=== PATIENT | female | born 1955 | race Caucasian/White ===

== ENCOUNTER 2022-12-21 18:31 | Emergency (ER) | payer MEDICARE ==
[~2022-12-21 18:31] MED LIST: ATOR20TA49 PO; CLON0.5T4 PO; DABI150C5 PO; HYDR-34 PO; INSU100I10 SQ; METF500T3 PO; PRAM1TAB2 PO; SERT50TA2 PO; SULF1TAB38 PO; UROCIT K PR
--- NOTE | 2022-12-21 18:50 | ED General ---
General Chief Complaint: Trauma-Non Activation Stated Complaint: FALL/SHOULDER PAIN Source of Information: Patient Exam Limitations: No Limitations History of Present Illness Date Seen by Provider: Dec 21, 2022 Time Seen by Provider: 18:50 Initial Comments Patient is a 67-year-old female who presents to the emergency department with a chief complaint of right shoulder pain. She states she was in her garden attempting to read, bent forward to pull some roots from a plant and toppled forward onto her right shoulder. She complained of immediate pain. No numbness tingling or weakness to the wrist or hand/fingers. She has not taken anything for pain. She states she did not hit her head or have a loss of consciousness. 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 Extensive cardiac and renal history. She did sustain abrasions to her bilateral anterior lower legs. She believes her last tetanus was greater than 5 years ago. She is holding the right upper extremity in internal rotation and adduction. Very limited range of motion due to pain. No abrasions or ecchymosis noted on the skin of the right upper extremity. Timing/Duration: 1 Hour Severity: Moderate Modifying Factors: improves with Immobilization; worse with Movement Associated Systoms: Denies Symptoms Allergies and Home Medications Allergies Coded Allergies: No Known Drug Allergies (Unverified , 04/24/19) Patient Home Medication List Home Medication List Reviewed: Yes Atorvastatin Calcium (Lipitor) 20 Mg Tablet, 20 MG PO DAILY, (Reported) Entered as Reported by: PARAG INGRAM on 04/24/191758 Clonazepam (Clonazepam) 0.5 Mg Tablet, 0.5 MG PO HS, (Reported) Entered as Reported by: PARAG INGRAM on 04/24/191758 Dabigatran Etexilate Mesylate (Pradaxa) 150 Mg Capsule, 150 MG PO BID, (Reported) Entered as Reported by: PARAG INGRAM on 04/24/191758 Hydrocodone Bit/Acetaminophen (HYDROcodone/APAP 7.5/325 TAB) 1 Each Tablet, 1-2 TAB PO Q4H Prescribed by: MARK MOODY on 04/24/19 151 Hydrocodone/Acetaminophen (Hydrocodone-Acetamin 7.5-325) 7.5 Mg-325 Mg Tablet, 1 EACH PO Q6H PRN for PAIN-BREAKTHROUGH Prescribed by: DORIS MAN on 12/21/222004 Insulin Glargine,Hum.rec.anlog (Lantus Solostar) 100 Unit/1 Ml Insuln.pen, 80 UNIT SQ BID, (Reported) Entered as Reported by: PARAG INGRAM on 04/24/191758 Metformin HCl (Glucophage Xr) 500 Mg Tab.er.24h, 1,000 MG PO BID, (Reported) Entered as Reported by: PARAG INGRAM on 04/24/191758 Pramipexole Di-HCl (Mirapex) 1 Mg Tablet, 1 MG PO HS, (Reported) Entered as Reported by: PARAG INGRAM on 04/24/191758 Sertraline HCl (Zoloft) 50 Mg Tablet, 50 MG PO DAILY, (Reported) Entered as Reported by: PARAG INGRAM on 04/24/191758 Sulfamethoxazole/Trimethoprim (Bactrim Ds Tablet) 1 Each Tablet, 1 EACH PO BID Prescribed by: MARK MOODY on 04/24/191511 [Urocit K] Unknown Strength , Unknown Dose [place] BID, (Reported) Entered as Reported by: PARAG INGRAM on 04/24/191758 Review of Systems Review of Systems Constitutional: see HPI EENTM: no symptoms reported Respiratory: no symptoms reported Cardiovascular: no symptoms reported Gastrointestinal: no symptoms reported Genitourinary: no symptoms reported Musculoskeletal: joint pain (right shoulder) Skin: other (abrasions) Past Evukrut-Guandk-Kvemag Hx Patient Social History Tobacco Use?: No Substance use?: No Alcohol Use?: No Seasonal Allergies Seasonal Allergies: No Past Medical History Surgeries: Yes (15-20 FOOT SURGERIES,TOE AMPUTATIONS,KIDNEY STONES) Amputation, Gallbladder, Hysterectomy, Orthopedic, Renal Respiratory: Yes Pulmonary Embolism Currently Using CPAP: No Cardiac: No Neurological: Yes Neuropathy Genitourinary: Yes Kidney Stones Gastrointestinal: No Musculoskeletal: Yes (MULTIPLE FOOT SURGERIES W AMPUTATION RIGHT GREAT AND 2ND TOES,OSTEOMYLITIS) Endocrine: Yes Diabetes, Insulin dep HEENT: No Cancer: No Psychosocial: No Integumentary: Yes Recent Skin Changes Blood Disorders: No Physical Exam Vital Signs Vital Signs - First Documented 12/21/22 18:40 Temp 36.5 Pulse 76 Resp 18 B/P (MAP) 113/61 (78) Pulse Ox 95 O2 Delivery Room Air Capillary Refill : Height, Weight, BMI Height: '" Weight: lbs. oz. kg; 37.03 BMI Method: General Appearance: WD/WN, Chronically ill Eyes: Bilateral Eye Normal Inspection HEENT: PERRL/EOMI Neck: Normal Inspection Respiratory: Chest Non Tender, Lungs Clear, Normal Breath Sounds, No Accessory Muscle Use, No Respiratory Distress, Other (no clavicular or chest wall tenderness) Cardiovascular: Regular Rate, Rhythm, Normal Peripheral Pulses, Other (2-3+ pitting edema bilateral LE) Extremity: Normal Inspection, Other (RUE - distal NVI - normal ROM right hand, fingers, wrist and elbow. Limited ROM to the right shoulder due to pain - held in ADDUCTION and internal rotation.) Neurologic/Psychiatric: Alert, Oriented x3, No Motor/Sensory Deficits, Normal Mood/Affect, activity aide II-XII Norm as Tested Skin: Normal Color, Warm/Dry, Other (superficial abrasions to the bilateral LE) Progress/Results/Core Measures Suspected Sepsis SIRS Temperature: Pulse: Respiratory Rate: Blood Pressure / Mean: Results/Orders My Orders Orders - DORIS MAN MD Shoulder, Right, 3 Views (12/21/22 18:59) Humerus, Right, 2 Views (12/21/22 18:59) Hydrocodone/Apap 7.5/325 Tab (Hydrocodon (12/21/22 19:00) Dipht/Pertuss(Acell)/Tet Adult (Dipht/Pe (12/21/22 20:15) Medications Given in ED Current Medications Medications Dose Ordered Sig/Eloina Route Start Time Stop Time Status Last Admin Dose Admin Acetaminophen/ Hydrocodone Bitart 1 ea ONCE ONCE PO 12/21/22 19:00 12/21/22 19:01 DC 12/21/22 19:07 1 EA Vital Signs/I&O 12/21/22 18:40 Temp 36.5 Pulse 76 Resp 18 B/P (MAP) 113/61 (78) Pulse Ox 95 O2 Delivery Room Air Capillary Refill : Progress Note : Time: 20:09 Progress Note Patient seen and examined by me. Evaluation today includes physical exam, right humerus x-ray, right shoulder x-ray. Pertinent physical exam findings well- developed well-nourished female in mild distress due to right shoulder pain. Currently holding the right shoulder in adduction and internal rotation. She is neurovascularly intact to the right upper extremity. She has some obvious deformity at the area of the distal right clavicle. No open wounds. Limited range of motion due to pain. Superficial abrasions to the bilateral lower extremities. Heart is regular, lungs are clear. She has 2-3+ pitting edema of the bilateral lower extremities. No focal neurodeficits. Differential diagnosis based on history and physical exam, right shoulder dislocation, right humeral head fracture, clavicular fracture Imaging independently reviewed and interpreted by me. She definitely has significant AC separation of the right shoulder joint. Radiologist has read the films and does not identify any acute fractures. There is suspicion for traumatic hemarthrosis. He also mentions "high-grade" AC separation. Patient is placed in a shoulder immobilizer. SHe was given one tablet of hydrocodone 7.5mg here in the ED for pain control. She is counseled on ice, immobilization. Also recommended starting gentle ROM in a couple of days. She is given a prescription for hydrocodone 7.5 mg tablets. She is referred to Dr. Brody Burdick at [facility] as well as given contact information for Dr. Burdick at [facility]. REturn precautions provided in both verbal and written format. All questions are sought and answered. Tetanus was also updated. Diagnostic Imaging Comments [facility] [place] NAME: NETO العراقي [facility] REC#: [id number] PT STATUS: REG ER : 1955 PHYSICIAN: DORIS MAN MD ADMIT DATE: 12/21/22/ER Signed Date of Exam:12/21/22 HUMERUS, RIGHT, 2 VIEWS INDICATION: Fall with right humeral injury AP and lateral views of right humerus are obtained. No acute fracture or dislocation is identified at the level of the upper arm, however, acromioclavicular separation is present. There is no lytic or sclerotic lesion. IMPRESSION: No acute osseous abnormality in the upper arm, however, there is acromioclavicular separation at the shoulder girdle. Dictated by: Dictated on workstation # [id number] Dict: 12/21/221929 Trans: 12/21/221955 LANA [id number] Interpreted by: LUIS FONG MD Electronically signed by: LUIS FONG MD 12/21/221955 Comments [facility] [place] [place] NAME: NETO العراقي [facility] REC#: [id number] PT STATUS: REG ER : 1955 PHYSICIAN: DORIS MAN MD ADMIT DATE: 12/21/22/ER Signed Date of Exam:12/21/22 SHOULDER, RIGHT, 3 VIEWS INDICATION: Fall with right shoulder injury AP, oblique and transscapular views of the right shoulder are obtained. There is inferior subluxation of the humeral head which may be due to hemarthrosis in the shoulder. There is disruption of the acromioclavicular joint with approximately 2 cm elevation of distal clavicle with respect to the acromion. No definite fracture is seen. IMPRESSION: High-grade acromioclavicular separation with probable pseudosubluxation of the humeral head due to hemarthrosis. No definite acute fracture seen. Dictated by: Dictated on workstation # [id number] Dict: 12/21/221928 Trans: 12/21/221955 LANA [id number] Interpreted by: LUIS FONG MD Electronically signed by: LUIS FONG MD 12/21/221955 Departure Impression Primary Impression: AC separation Qualified Codes: S43.101A - Unspecified dislocation of right acromioclavicular joint, initial encounter Additional Impressions: traumatic hemarthrosis of right shoulder joint Abrasion Disposition: 01 HOME, SELF-CARE Condition: Stable Departure-Patient Inst. Decision time for Depature: 19:56 Referrals: NO,LOCAL PHYSICIAN (PCP/Family) Primary Care Physician Patient Instructions: shoulder Add. Discharge Instructions: Use an ice pack 20 minutes at a time every 1-2 hours for the next several days. Keep the shoulder IMMOBILE in the sling for a couple of days - then you should start doing some very gentle range of motion of the shoulder (with no weight in your hand). "Pendulum swings" of the arm. Small circles at the shoulder joint as well. Take your pain medications - Hydrocodone 7.5mg tablets, with an extra 500mg tylenol, every 6 hours for pain. Call the Ortho doctor of your choice tomorrow for a follow up appointment, this week if possible. Dr Alfred Burdick at [address] in [place] or Dr Burdick. [address] [place] [address], [place] [phone] I have also sent your chart and records to Dr Brody Burdick here at [address]. His contact information is attached. Return to the Emergency Department for any new, concerning or emergent complaints. Scripts Hydrocodone/Acetaminophen (Hydrocodone-Acetamin 7.5-325) 7.5 Mg-325 Mg Tablet 1 EACH PO Q6H PRN for PAIN-BREAKTHROUGH, #15 TAB Prov: DORIS MAN MD 12/21/22 Copy Copies To 1: BRODY BURDICK MD, KATHRYN M MD Dec 21, 2022 18:50
[2022-12-21] MEDS ORDERED: HYDROcodone/ACETAMINOPHEN 7.5 MG/325 MG TABLET PO ONE (19:00)
--- NOTE | 2022-12-21 19:36 | Diagnostic Imaging Report ---
INDICATION: Fall with right shoulder injury AP, oblique and transscapular views of the right shoulder are obtained. There is inferior subluxation of the humeral head which may be due to hemarthrosis in the shoulder. There is disruption of the acromioclavicular joint with approximately 2 cm elevation of distal clavicle with respect to the acromion. No definite fracture is seen. IMPRESSION: High-grade acromioclavicular separation with probable pseudosubluxation of the humeral head due to hemarthrosis. No definite acute fracture seen. Dictated by: Dictated on workstation # [id number]
--- NOTE | 2022-12-21 19:37 | Diagnostic Imaging Report ---
INDICATION: Fall with right humeral injury AP and lateral views of right humerus are obtained. No acute fracture or dislocation is identified at the level of the upper arm, however, acromioclavicular separation is present. There is no lytic or sclerotic lesion. IMPRESSION: No acute osseous abnormality in the upper arm, however, there is acromioclavicular separation at the shoulder girdle. Dictated by: Dictated on workstation # [id number]
[2022-12-21] MEDS ORDERED: HYDR-3817 PO (20:05)
[2022-12-21] MEDS ORDERED: Tetanus/Diphtheria/Pertussis (Acell) ADULT Vaccine 0.5 ML IM ONE (20:15)
[2022-12-21 20:43] VITALS: BP 135/58
== END 2022-12-21 20:44 | disposition home or self-care (01) ==
LOC: EDUNIT# 18:31 → ER 18:33
DX: S43.101A Unspecified dislocation of right acromioclavicular joint, initial encounter (principal); S80.811A Abrasion, right lower leg, initial encounter; S80.812A Abrasion, left lower leg, initial encounter; E11.9 Type 2 diabetes mellitus without complications; Z86.718 Personal history of other venous thrombosis and embolism; Z79.4 Long term (current) use of insulin; Z79.01 Long term (current) use of anticoagulants; X50.1XXA Overexertion from prolonged static or awkward postures, initial encounter
CPT/HCPCS: 73030; 73060; 90715